=== PATIENT | male | born 1970 | race Caucasian/White ===

== ENCOUNTER 2020-07-04 01:48 | Emergency (ER) | payer MEDICAID ==
[~2020-07-04] VITALS: Ht 182.9 cm; Wt 77.1 kg
[2020-07-04] MEDS ORDERED: BACTRIM DS TAB1 EAC1 ORAL (02:00)
[2020-07-04] MEDS ORDERED: IBUPROFEN600 M1 ORAL (02:00)
[2020-07-04] MEDS ORDERED: Bactrim-DS 1 tab ORAL ONE (02:00)
--- NOTE | 2020-07-04 02:00 | Emergency Room Report ---
History of Present Illness General Chief Complaint: Skin Rash/Abscess Source: Patient Present Illness HPI This a 50-year-old male with no past medical history. He is presents with chief complaint of spider bite. He said he has 1 to his neck and the back of his head and also wanted to his left elbow. The left elbow been there for about a week and he drained it today. The one is neck and head is been there for 2 to 3 days. No fever chills. Pain is 8 out of 10. Worse with palpation. Better with rest. Denies any other complaint. 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 Patient History Past Medical History: see triage record, old chart reviewed Past Surgical History: none Pertinent Family History: none Social History: Reports: smoking Immunizations: other Reviewed Nursing Documentation: PMH: Agreed; PSxH: Agreed Nursing Documentation-PMH History Of Psychiatric Problem: Yes - anxiety; Review of Systems Eye: Denies: eye pain, blurred vision ENT: Denies: ear pain, nose congestion, throat swelling Respiratory: Denies: cough, shortness of breath Cardiovascular: Denies: chest pain, palpitations Gastrointestinal: Denies: abdominal pain, diarrhea, nausea, vomiting Musculoskeletal: Denies: back pain, joint pain Skin: Denies: rash Neurological: Denies: headache, numbness Endocrine: Denies: increased thirst, increased urine Hematologic/Lymphatic: Denies: easy bruising All Other Systems: negative except mentioned in HPI Physical Exam Vital Signs Date Time Temp Pulse Resp B/P (MAP) Pulse Ox O2 Delivery O2 Flow Rate FiO2 07/04/20 01:52 97.9 98 19 118/74 (89) 94 Room Air Vitals normal Sp02 EP Interpretation: reviewed, normal General Appearance: well appearing, no apparent distress, alert Head: normocephalic, atraumatic Eyes: bilateral eye PERRL, bilateral eye EOMI ENT: hearing grossly normal, normal pharynx, other - In the back of his head by the ear over the mastoid area there is a indurated area of 1 cm with central necrotic area. There is surrounding redness. Neck: full range of motion, supple, no meningismus Respiratory: chest non-tender, lungs clear, normal breath sounds Cardiovascular #1: regular rate, rhythm, no murmur Gastrointestinal: normal bowel sounds, non tender, no mass, no organomegaly, no bruit, non-distended Musculoskeletal: back normal, normal range of motion, gait/station normal, other - Left elbow: There is indurated area. There is no fluctuant area. No drainage. No redness. Psychiatric: mood/affect normal Procedures Incision and Drainage Incision and Drainage : Consent: Verbal Site: Scalp Blade Size: 11 I & D Procedure: betadine prep Wound Location: head Anesthesia: 1% Lidocaine Volume Anesthetic (ccs): 1 Patient Tolerated: Well Complications: None Progress Area cleaned with Betadine. Local anesthetic 1% lidocaine. I made a 1 cm incision and remove the eschar. Loculated area broken up. Small amount of abscess/purulent discharge removed. Patient tolerated procedure without any problem. Medical Decision Making Diagnostic Impression: Primary Impression: Abscess ER Course Patient presents with an abscess. Most likely MRSA. Will discharge home. Dose of antibiotics given here. Last Vital Signs Date Time Temp Pulse Resp B/P (MAP) Pulse Ox O2 Delivery O2 Flow Rate FiO2 07/04/20 01:52 97.9 98 19 118/74 (89) 94 Room Air Status: improved Disposition: HOME, SELF-CARE Condition: Stable Scripts Ibuprofen* (MOTRIN*) 600 Mg Tablet 600 MG ORAL Q6H PRN for For Pain, #30 TAB 0 Refills Prov: Pedro Reinoso MD 07/04/20 Trimethoprim/Sulfamethoxazole 160/800* (BACTRIM DS TABLET*) 1 Each Tablet 1 TAB ORAL Q12H, #14 TAB 0 Refills Prov: Pedro Reinoso MD 07/04/20 Patient Instructions: Abscess Additional Instructions: Follow-up with your doctor in 2-3 days for recheck. Return if worse. Pedro Reinoso MD Jul 04, 2020 02:00
[2020-07-04 02:22] VITALS: BP 118/74
== END 2020-07-04 02:22 | disposition home or self-care (01) ==
LOC: EMR 02:00
DX: L02.811 Cutaneous abscess of head [any part, except face] (principal); F17.200 Nicotine dependence, unspecified, uncomplicated; F41.9 Anxiety disorder, unspecified
CPT/HCPCS: 10060; Z7502; 99283